=== PATIENT | male | born 1960 | race Caucasian/White ===

== ENCOUNTER 2021-05-01 22:44 | Emergency (ER) | payer OTHER ==
[~2021-05-01] VITALS: Ht 188 cm; Wt 95.2 kg
[2021-05-01] MEDS ORDERED: LIPITOR20 MG PO (23:01)
[2021-05-01] MEDS ORDERED: SUPHEDRIN 12-H120 MG PO (23:02)
[2021-05-01] MEDS ORDERED: CLARITIN10 M2 PO (23:02)
[2021-05-01] MEDS ORDERED: MEN 50 PLUS MU1 EACH PO (23:03)
[2021-05-01] MEDS ORDERED: FLONASE ALLERG9.9 ML NAS (23:04)
[2021-05-01] MEDS ORDERED: PROBIOTIC1 EAC1 PO (23:04)
[2021-05-02] MEDS ORDERED: PERCOCET 5-3251 EACH PO (00:07)
== END 2021-05-02 00:30 | disposition home or self-care (01) ==
LOC: ED 22:44
DX: S42.322A Displaced transverse fracture of shaft of humerus, left arm, initial encounter for closed fracture (principal); W01.10XA Fall on same level from slipping, tripping and stumbling with subsequent striking against unspecified object, initial encounter
CPT/HCPCS: 73060; 99283-25